=== PATIENT | male | born 1950 | race Two or more races ===

== ENCOUNTER 2018-05-12 19:34 | Emergency (ER) | payer OTHER ==
[~2018-05-12] VITALS: Ht 170.2 cm; Wt 83.9 kg
[~2018-05-12 19:34] MED LIST: GABA300C10 PO; IBUP200T49 PO; LOSA100T14 PO; MORP15TA3 PO; MORP15TA3 SL; OXYC-323 PO; TAMS-14 PO; TIZA4CAP2 PO; [UNRECOGNIZED DRUG - CODE] PO
[2018-05-12 20:02] VITALS: BP 116/85
[2018-05-12] MEDS ORDERED: TORADOL IM STA (20:42)
--- NOTE | 2018-05-12 20:47 | ER.PDOC ---
General Chief Complaint: Lower Back Pain or Injury Stated Complaint: FALL Time seen by MD: 20:43 Source: patient Exam Limitations: no limitations History of Present Illness Initial Comments Right ribs, lower back and right hip pain S/P fall 3 days ago. He did not hit his head. Where: home Severity: moderate Injuries/Pain Location: chest, back, pelvis Loss of Consciousness: No Loss of Consciousness Associated Symptoms: denies symptoms Allergies: Coded Allergies: No Known Allergies (Unverified , 06/25/16) MEDS Reported Medications Oxycodone Hcl/Acetaminophen (PERCOCET 5-325 MG TABLET) 1 Each Tablet, 1 TAB PO Q8, #90 TAB 06/25/16 Morphine Sulfate (MORPHINE SULFATE ER) 15 Mg Tablet.er, 1 TAB PO BID, #60 TAB 06/25/16 Gabapentin (GABAPENTIN) 300 Mg Capsule, 1 CAP PO TID, #90 CAP 5 Refills 05/29/16 Tizanidine Hcl (ZANAFLEX) 4 Mg Capsule, 1 CAP PO Q6 PRN for MUSCLE SPASM, #30 CAP 05/29/16 Tamsulosin Hcl (FLOMAX) 0.4 Mg Cap.er.24h, 1 CAP PO DAILY, #30 CAP 11 Refills 05/29/16 Losartan Potassium (LOSARTAN POTASSIUM) 100 Mg Tablet, 1 TAB PO DAILY, #30 TAB 5 Refills 05/29/16 Ibuprofen (MOTRIN IB) 200 Mg Tablet, 800 MG PO DAILY PRN for PAIN, TABLET 05/29/16 Past Medical History Medical History: hypertension Surgical History: hip Social History Smoking: non-smoker Alcohol Use: rarely Drug Use: none Review of Systems Constitutional: no symptoms reported Respiratory: no symptoms reported Cardiovascular: see HPI Gastrointestinal: no symptoms reported Genitourinary: no symptoms reported Musculoskeletal: see HPI All Other Systems: Reviewed and Negative Physical Exam General Appearance: No Apparent Distress, WD/WN Head: No Evidence of Injury Neck: Non-Tender, Normal Alignment, Nexus criteria neg, Normal Inspection Cardiovascular/Respiratory: Regular Rate, Rhythm, No M/R/G, Normal Peripheral Pulses, No JVD, Rib Tenderness (right lateral) Gastrointestinal: Normal Bowel Sounds, No Organomegaly, No Pulsatile Mass, Non Tender, Soft Back: Vertebral Tenderness (L spine) Extremities: Pain With Movement (right hip), Other (Left AKA) 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, No Motor/Sensory Deficits, Alert, Normal Mood/Affect, Oriented x 3 Skin: Normal Color [place] Coma Score Best Eye Response: (4) Open Spontaneously Best Verbal Response: (5) Oriented Best Motor Response: (6) Obeys Commands Results/Orders Results/Orders Administered Medications Medications (Trade) Dose Ordered Sig/Sung Route PRN Reason Start Time Stop Time Status Last Admin Dose Admin Ketorolac Tromethamine (Toradol) 60 mg STAT STAT IM 05/12/18 20:42 05/12/18 20:45 DC 05/12/18 21:00 EKG/XRAY/CT/US CT Comments: Nothing acute on CT chest, L spine and Pelvis Departure Time of Disposition: 23:09 Disposition: 01 HOME, SELF-CARE Impression: Primary Impression: Contusion, multiple sites Condition: Stable Referrals: ZANE SAMS [facility] DUTY NURSE (PCP) PRIMARY CARE PROVIDER Additional Instructions: Continue pain medications at home F/U with your PCP in 2-3 days Duration or Time Spent with Pa: 60 mins CARMELLA GAR MD May 12, 2018 20:47
[2018-05-12 21:20] VITALS: BP 166/98
--- NOTE | 2018-05-12 22:12 | DIREP ---
PROCEDURE:CT CHEST W/O COMPARISON:[facility], CT, CT SPINE LUMBAR W/O, 05/12/2018, 09:10 PM. INDICATIONS:Right rib pain S/P fall TECHNIQUE:Helical sections through the chest were performed from the lung apices through the diaphragms without IV contrast. Sagittal and coronal reconstructions are obtained from source images. FINDINGS: LUNGS:Normal. No visible pulmonary disease. PLEURA:Normal. No mass or effusion. CARDIAC:Normal. No enlargement, pericardial thickening, or significant calcification. MEDIASTINUM:Normal. No mass or adenopathy. CAROLYN:Normal. No mass or adenopathy. AORTA:Normal. No aneurysm. CHEST WALL:Normal. No mass or axillary adenopathy. LIMITED ABDOMEN:Normal. Limited images of the upper abdomen are unremarkable. BONES:No fractures or other acute abnormalities. Degenerative changes of the thoracic spine. OTHER:Negative. CONCLUSION:No acute chest abnormalities. Dictated by: Tomas Armstrong M.D. on 05/12/2018 at 10:07 PM
--- NOTE | 2018-05-12 22:18 | DIREP ---
PROCEDURE: CT LUMBAR SPINE WITHOUT CONTRAST TECHNIQUE:Axial cuts were obtained through the lumbar spine. The images were viewed at bone and soft tissue settings. Sagittal and coronal reconstructions are provided. COMPARISON:[facility], CT, CT SPINE LUMBAR W/O, 05/01/2016, 02:45 PM. INDICATIONS:Pain S/P fall FINDINGS: ALIGNMENT:Normal. VERTEBRAE:Vertebral body heights are normal. PARASPINAL AREA:Normal. OTHER:No additional findings. LUMBAR DISC LEVELS T12-L1:Vacuum phenomenon and anterior osteophytes. L1-L2:Vacuum phenomenon and anterior osteophytes. Degenerative endplate changes. L2-L3:Vacuum phenomenon and anterior osteophytes. Degenerative endplate changes. L3-L4:Vacuum phenomenon and anterior osteophytes. Degenerative endplate changes. L4-L5:Marked decreased disc height, vacuum phenomenon, and anterior and posterior osteophytes. Degenerative endplate changes. L5-S1:Marked decreased disc height and vacuum phenomenon. Broad-based posterior disc protrusion. Degenerative endplate changes. CONCLUSION:No acute lumbar spine abnormalities. Multilevel DDD and spondylosis. Dictated by: Tomas Armstrong M.D. on 05/12/2018 at 10:12 PM
--- NOTE | 2018-05-12 22:21 | DIREP ---
PROCEDURE:CT PELVIS W/O COMPARISON:[facility], CT, CT-ABDOMEN /PELVIS W/O CONTRAST, 05/03/2013, 01:07 AM. INDICATIONS:Pain S/P fall TECHNIQUE:Axial images were created through the pelvis without intravenous contrast material. No oral contrast was administered. Sagittal and coronal reconstructions were performed from source images. FINDINGS: AORTA/VASCULAR:Normal. No aneurysm. RETROPERITONEUM:Normal. No mass or adenopathy. BOWEL/MESENTERY:Sigmoid diverticulosis. ABDOMINAL WALL:Normal. No mass or hernia. PELVIC ORGANS:Mildly enlarged prostate. BONES:No fractures or other acute abnormalities. OTHER:Negative. CONCLUSION:No acute pelvis abnormalities. Dictated by: Tomas Armstrong M.D. on 05/12/2018 at 10:16 PM
[2018-05-12] MEDS ORDERED: NORCO 10MG PO STA (23:12)
[2018-05-12] MEDS ORDERED: NORCO 10MG PO ONE (23:16)
[2018-05-12 23:25] VITALS: BP 166/98
== END 2018-05-12 23:23 | disposition home or self-care (01) ==
LOC: ER 19:34
DX: S20.211A Contusion of right front wall of thorax, initial encounter (principal); S70.01XA Contusion of right hip, initial encounter; S30.0XXA Contusion of lower back and pelvis, initial encounter; I10 Essential (primary) hypertension; Z79.899 Other long term (current) drug therapy; W19.XXXA Unspecified fall, initial encounter; Y93.89 Activity, other specified; Y92.098 Other place in other non-institutional residence as the place of occurrence of the external cause; Y99.8 Other external cause status
CPT/HCPCS: 71250; 72131; 72192; 96372; 99284; J1885

== ENCOUNTER 2018-07-24 00:38 | Emergency (ER) | payer MEDICARE, OTHER ==
[~2018-07-24] VITALS: Ht 170.2 cm; Wt 83.9 kg
[2018-07-24] MEDS ORDERED: TORADOL ONE (00:57)
[2018-07-24] MEDS ORDERED: KENALOG-40 ONE (00:57)
--- NOTE | 2018-07-24 01:02 | ER.PDOC ---
General Chief Complaint: Back Pain/Injury Stated Complaint: BACK PAIN Time seen by MD: 00:56 Source: patient Exam Limitations: no limitations History of Present Illness Initial Comments Has chronic back pain and ran out of Fentanyl patches. Expected to have refill later today. Wants a pain shot to enable him sleep . Denies any new fall or injury. Severity/Quality: moderate Method of Injury: unknown Associated Symptoms: lower back pain Prior symptoms/Treatment: Similar symptoms previous Allergies: Coded Allergies: No Known Allergies (Unverified , 06/25/16) Home Meds Reported Medications Oxycodone Hcl/Acetaminophen (PERCOCET 5-325 MG TABLET) 1 Each Tablet, 1 TAB PO Q8, #90 TAB 06/25/16 Morphine Sulfate (MORPHINE SULFATE ER) 15 Mg Tablet.er, 1 TAB PO BID, #60 TAB 06/25/16 Gabapentin (GABAPENTIN) 300 Mg Capsule, 1 CAP PO TID, #90 CAP 5 Refills 05/29/16 Tizanidine Hcl (ZANAFLEX) 4 Mg Capsule, 1 CAP PO Q6 PRN for MUSCLE SPASM, #30 CAP 05/29/16 Tamsulosin Hcl (FLOMAX) 0.4 Mg Cap.er.24h, 1 CAP PO DAILY, #30 CAP 11 Refills 05/29/16 Losartan Potassium (LOSARTAN POTASSIUM) 100 Mg Tablet, 1 TAB PO DAILY, #30 TAB 5 Refills 05/29/16 Ibuprofen (MOTRIN IB) 200 Mg Tablet, 800 MG PO DAILY PRN for PAIN, TABLET 05/29/16 Past Medical History Medical History: hypertension, other (Chronic low back pain) Surgical History: hip Social History Smoking: non-smoker Alcohol Use: none Drug Use: none Review of Systems Constitutional: no symptoms reported EENTM: no symptoms reported Respiratory: no symptoms reported Cardiovascular: no symptoms reported Gastrointestinal: no symptoms reported Musculoskeletal: see HPI All Other Systems: Reviewed and Negative Physical Exam General Appearance: No Apparent Distress, WD/WN Neck: Non-Tender, Normal Alignment Cardiovascular/Respiratory: Regular Rate, Rhythm, No M/R/G, Normal Peripheral Pulses, No JVD, Normal Breath Sounds, No Respiratory Distress Gastrointestinal: Normal Bowel Sounds, No Organomegaly, No Pulsatile Mass, Non Tender, Soft Back: Other (tenderness paraspinous muscles of L spine) Extremities: No Evidence of Injury, Normal Range of Motion, Non-Tender, No Pedal Edema, Pelvis Stable, Other (left AKA) 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, 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, mood/effect nml, No Motor/Sensory Deficits, Relexes nml Results/Orders Results/Orders Orders - CARMELLA GAR MD Ketorolac Tromethamine (Toradol) (07/24/18 00:52) Triamcinolone Acetonide (Kenalog-40) (07/24/18 00:52) Vital Signs Date Time Temp Pulse Resp B/P (MAP) Pulse Ox O2 Delivery O2 Flow Rate FiO2 07/24/18 00:41 97.9 66 16 96 Room Air 97.9 07/24/18 00:41 97.9 68 16 97.9 Course Sepsis Screening Results: Posi: POSITIVE SEPSIS RISK Duration or Total Time Spent w: 60 mins Vitals & review Data Vital Sign - Last 24 Hours 07/24/18 07/24/18 00:41 00:41 Temp 97.9 97.9 97.9 97.9 Pulse 68 66 Resp 16 16 Pulse Ox 96 O2 Delivery Room Air Sepsis Infection Criteria Pres: None O2 Sat by Pulse Oximetry: 96 Departure Time of Disposition: 00:59 Disposition: 01 HOME, SELF-CARE Impression: Primary Impression: Low back pain Condition: Improved Referrals: ZANE SAMS [employer] (PCP) PRIMARY CARE PROVIDER Additional Instructions: pathology supervisor your Fentanyl refill later today Continue rest of home medications F/U with your pain Doctor as needed. Duration or Time Spent with Pa: 20 mins Problem Qualifiers Primary Impression: Low back pain Chronicity: chronic Back pain laterality: unspecified Sciatica presence: without sciatica Qualified Codes: M54.5 - Low back pain; G89.29 - Other chronic pain CARMELLA GAR MD Jul 24, 2018 01:02
[2018-07-24] MEDS: KENALOG-40 IM STA (01:04)
[2018-07-24] MEDS: TORADOL IM STA (01:04)
[2018-07-24 01:31] VITALS: BP 121/93
== END 2018-07-24 01:35 | disposition home or self-care (01) ==
LOC: EDBD 00:38 → ER 00:38
DX: G89.29 Other chronic pain (principal); M54.5 Low back pain; I10 Essential (primary) hypertension; Z79.899 Other long term (current) drug therapy
CPT/HCPCS: 96372; 99284; J1885; J3301

== ENCOUNTER 2022-12-11 08:08 | Emergency (ER) | payer MEDICARE ==
[~2022-12-11] VITALS: Ht 170.2 cm; Wt 82.1 kg
[~2022-12-11 08:08] MED LIST changes: -LOSA100T14 PO; +LOSA100T15 PO; +MORP-23 PO; +MORP-23 SL; -MORP15TA3 PO; -MORP15TA3 SL
[2022-12-11 08:12] VITALS: BP 166/100; PULSE 71; RESP 20; TEMP 98; O2SAT 97
--- NOTE | 2022-12-11 08:12 | NUR ---
ARRIVAL PT AMBULATES TO ED6 WITH C/O HEADACHE, DRY THROAT, BURNING NOSTRILS, CLAMMY HANDS, AND NAUSEA STARTING LAST NIGHT. PT STATES HE HAS A MICE INFESTATION AT HIS HOUSE AND PUT OUT NUMEROUS AMOUNTS OF MOUSE KILLER LAST FRIDAY. PT STAYED WITH HIS DAUGHTER UNTIL FRIDAY AND THEN RETURNED TO HIS HOUSE. PT STATES SYMPTOMS STARTED LAST NIGHT. PT RATES HEADACHE 10/19. VITALS OBTAINED. PT AFEBRILE. NOTIFIED OF PTS ARRIVAL.
[2022-12-11 08:42] LABS: BASOPHIL % 0.5 % (0.0-0.2); EOSINOPHIL % 0.6 % (0.0-5.0); LYMPHOCYTES # 0.72 10^3/uL1 (1.0-4.8); LYMPHOCYTES % 11.2 % (24.0-44.0); MEAN CORP HGB 29.7 pg (26-34); MONOCYTES # 0.4 10^3/uL (0.3-0.8); MONOCYTES % 6.1 % (5.0-12.0); NEUTROPHIL # 5.3 10^3/uL (1.8-7.7); NEUTROPHILS % 81.4 % (41.0-85.0); RED CELL DISTRIBUTION WIDTH 13.1 % (11.5-14.5)
[2022-12-11 08:43] LABS: BILIRUBIN,URINE NEGATIVE (NEGATIVE); UROBILINOGEN,URINE 0.2 E.U./dL (0.2)
[2022-12-11 09:04] LABS: CARBON DIOXIDE 26.8 mmol/L (20.0-32)
[2022-12-11 09:22] VITALS: BP 142/91; PULSE 62; RESP 20; TEMP 98; O2SAT 98
--- NOTE | 2022-12-11 10:01 | DIREP ---
PROCEDURE:CT HEAD OR BRAIN W/O CONTRAST COMPARISON:None. INDICATIONS:Headache TECHNIQUE:CT images were created without intravenous contrast. FINDINGS: VENTRICLES:There is mild prominence of the ventricles and cortical sulci consistent with age related involutional changes. CEREBRUM:Normal cerebral morphology with appropriate kolb white matter differentiation. CEREBELLUM:Negative. BRAINSTEM:Negative. BASAL CISTERNS:Negative. HEMORRHAGE (Vol L*W*H*.52):No MASS LESION:No ACUTE INFARCT:No SKULL:Normal. SINUSES:Normal. OTHER:None CONCLUSION:No acute intracranial process. Dictated by: Balaji Bowie M.D. on 12/11/2022 at 09:59 AM
--- NOTE | 2022-12-11 10:14 | DIREP ---
PROCEDURE:CHEST 1 VIEW COMPARISON:[facility], CR, XRAY RIBS 2 VWS-LT, 11/07/2015, 11:12 AM. INDICATIONS:Inhaled rat poison FINDINGS: LUNGS/PLEURA:The lungs and pleural spaces are clear. VASCULATURE:Unremarkable. CARDIAC:Unremarkable. MEDIASTINUM:Unremarkable. BONES:Degenerative changes in the bilateral AC joints. OTHER:Negative. CONCLUSION: No acute cardiopulmonary process. Dictated by: Kiel Epperson MD. on 12/11/2022 at 10:12 AM
--- NOTE | 2022-12-11 10:29 | ER.PDOC ---
General Chief Complaint: General Complaint Stated Complaint: GENERAL TRAVEL OUT OF US: No Time seen by MD: 09:00 Source: patient Exam Limitations: no limitations History of Present Illness Initial Comments Headache, dry throat, burning nose, nausea and clammy hands after inhaling rat poison about 3 days ago. No chest pain or shortness of breath. No other complaints. He had a lot of of mouse in his house and so he placed rat poison. When he opened the door, he smelled the poison and started having the symptoms. Severity: moderate Associated Symptoms: denies symptoms Allergies: Coded Allergies: No Known Allergies (Unverified , 06/25/16) Home Meds Reported Medications Oxycodone Hcl/Acetaminophen (PERCOCET 5-325 MG TABLET) 1 Each Tablet, 1 TAB PO Q8, #90 TAB 06/25/16 Morphine Sulfate (MORPHINE SULFATE ER) 15 Mg Tablet.er, 1 TAB PO BID, #60 TAB 06/25/16 Gabapentin (GABAPENTIN) 300 Mg Capsule, 1 CAP PO TID, #90 CAP 5 Refills 05/29/16 Tizanidine Hcl (ZANAFLEX) 4 Mg Capsule, 1 CAP PO Q6 PRN for MUSCLE SPASM, #30 CAP 05/29/16 Tamsulosin Hcl (FLOMAX) 0.4 Mg Cap.er.24h, 1 CAP PO DAILY, #30 CAP 11 Refills 05/29/16 Losartan Potassium (LOSARTAN POTASSIUM) 100 Mg Tablet, 1 TAB PO DAILY, #30 TAB 5 Refills 05/29/16 Ibuprofen (MOTRIN IB) 200 Mg Tablet, 800 MG PO DAILY PRN for PAIN, TABLET 05/29/16 Past Medical History Medical History: hypertension Surgical History: hip, other Family History Significant Family History: no pertinent family hx Social History Smoking: non-smoker Alcohol Use: occassionally Drug Use: none Review of Systems Constitutional: no symptoms reported EENTM: no symptoms reported Respiratory: no symptoms reported Cardiovascular: no symptoms reported Gastrointestinal: see HPI All Other Systems: Reviewed and Negative Physical Exam General Appearance: No Apparent Distress, WD/WN Neck: Non-Tender, Full Range of Motion, Supple, Normal Inspection Respiratory: chest non-tender, lungs clear, normal breath sounds, no respiratory distress, no accessory muscle use CVS: reg rate & rhythm, no murmur, no gallop, pulses nml Gastrointestinal: Normal Bowel Sounds, No Organomegaly, No Pulsatile Mass, Non Tender Back: Normal Inspection Extremities: Normal Range of Motion 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 Skin: Normal Color Lymphatic: No Adenopathy Results/Orders Results/Orders Orders - CARMELLA GAR MD Cbc With Auto Diff (12/11/22 08:25) Comprehensive Metabolic Panel (12/11/22 08:25) Urinalysis (12/11/22 08:25) Xr Chest 1v (12/11/22 08:25) Ct Head Wo Contrast (12/11/22 09:28) Vital Signs Date Time Temp Pulse Resp B/P (MAP) Pulse Ox O2 Delivery O2 Flow Rate FiO2 12/11/22 09:22 98.0 62 20 142/91 (108) 98 Room Air* 0 21 12/11/22 08:12 98.0 71 20 166/100 (122) 97 Room Air* 0 21 12/11/22 08:12 98.0 71 20 12/11/22 08:12 98.0 71 20 97 Laboratory Tests Test 12/11/22 00:00 12/11/22 08:37 Urine Collection Type UNKNOWN Urine Color YELLOW Urine Appearance CLEAR Urine Bilirubin NEGATIVE (NEGATIVE) Urine Ketones TRACE (NEGATIVE) H Urine Specific [place] 1.025 (1.005-1.030) Urine pH 7.0 (4.5-8.0) Urine Protein NEGATIVE (NEGATIVE) Urine Urobilinogen 0.2 E.U./dL (0.2) Urine Nitrate NEGATIVE (NEGATIVE) Urine Leukocyte Esterase NEGATIVE (NEGATIVE) Urine Glucose (Auto)(UA) NEGATIVE (NEGATIVE) Urine Blood NEGATIVE (NEGATIVE) White Blood Count 6.4 10^3/uL (4.5-11.0) Red Blood Count 4.81 10^6/uL (4.50-5.90) Hemoglobin 14.3 g/dL (13.9-16.3) Hematocrit 41.6 % (37.0-53.0) Mean Corpuscular Volume 86.5 fL (78-100) Mean Corpuscular Hemoglobin 29.7 pg (26-34) Mean Corpuscular Hemoglobin Concent 34.4 g/dL (33-36.5) Red Cell Distribution Width 13.1 % (11.5-14.5) Platelet Count 176 10^3/uL (150-400) Mean Platelet Volume 10.0 fL (7.8-11.0) Neutrophils (%) (Auto) 81.4 % (41.0-85.0) Lymphocytes (%) (Auto) 11.2 % (24.0-44.0) L Monocytes (%) (Auto) 6.1 % (5.0-12.0) Neutrophils # (Auto) 5.3 10^3/uL (1.8-7.7) Lymphocytes # (Auto) 0.72 10^3/uL1 (1.0-4.8) L Monocytes # (Auto) 0.4 10^3/uL (0.3-0.8) Absolute Immature Granulocyte (auto 0.01 10^3 u/L (0-2) Absolute Eosinophils (auto) 0.0 10^3/uL (0.0-0.2) Immature Granulocytes % 0.20 % (0.00-0.50) Eosinophils % 0.6 % (0.0-5.0) Basophils % 0.5 % (0.0-0.2) H Basophils # 0.0 10^3/uL (0.0-0.1) Sodium Level 139 mmol/L (132-145) Potassium Level 4.0 mmol/L (3.6-5.2) Chloride Level 104.0 mmol/L (96-109) Carbon Dioxide Level 26.8 mmol/L (20.0-32) Anion Gap 12.2 Blood Urea Nitrogen 23 mg/dL (7-18) H Creatinine 0.84 mg/dL (0.59-1.40) Estimated GFR () 109.3 (>/=60) Est GFR (CKD-EPI)(Non-Afr [place]ander) 90.3 (>/=60) BUN/Creatinine Ratio 27.0 (10.0-20.0) H Glucose Level 133 mg/dL (74-106) H Calcium Level 9.2 mg/dL (8.4-10.5) Total Bilirubin 0.5 mg/dL (0.2-1.0) Aspartate Amino Transferase (AST) 26 U/L (0-35) Alanine Aminotransferase (ALT) 25 U/L (12-78) Alkaline Phosphatase 97 U/L (50-136) Total Protein 7.8 g/dL (6.4-8.2) Albumin 4.0 g/dL (3.4-5.0) Globulin 3.8 Albumin/Globulin Ratio 1.[address] head: Normal Chest x-ray: No acute process Glucose 133, BUN 23, rest of chemistry is normal. CBC normal. I reassured patient that what ever he inhaled will eventually work its way out of the body. Vital signs are stable. He took his pain medicine at home before coming, so he does not have a headache right now. Nausea has resolved. ER DEPART Departure Time of Disposition: 10:27 Disposition: 01 HOME / SELF CARE / HOMELESS Impression: Primary Impression: Headache Additional Impressions: Inhalation of substance Nausea Condition: Improved Referrals: ABEL MARTINEZ MD (PCP) PRIMARY CARE PROVIDER Additional Instructions: Continue with home medications Push fluids at home Follow-up with your PCP in 2 to 3 days Return to ED if worsening symptoms or concerns Duration or Time Spent with Pa: 30 min Problem Qualifiers Primary Impression: Headache Headache type: unspecified Headache chronicity pattern: acute headache Intractability: not intractable Qualified Codes: R51.9 - Headache, unspecified CARMELLA GAR MD Dec 11, 2022 10:29
[2022-12-11 10:37] VITALS: BP 120/80; PULSE 54; RESP 20; TEMP 98; O2SAT 93
== END 2022-12-11 10:40 | disposition home or self-care (01) ==
LOC: ER 08:08
DX: R51.9 Headache, unspecified (principal); R11.0 Nausea; I10 Essential (primary) hypertension
CPT/HCPCS: 36415; 70450; 71045; 80053; 81003; 85025; 99284

== ENCOUNTER → 2024-08-03 | Outpatient (CLI) | payer MEDICARE | END | disposition home or self-care (01) | LOC: RAD 09:46 | PROVIDERS: ATTEND Student in an Organized Health Care Education/Training Program | DX: M19.012 Primary osteoarthritis, left shoulder (principal); M16.0 Bilateral primary osteoarthritis of hip; M25.851 Other specified joint disorders, right hip | CPT/HCPCS: 73502; 73030-LT ==